=== PATIENT | female | born 2000 | race Caucasian/White ===

== ENCOUNTER 2024-08-18 06:47 | Inpatient (IN) | payer BC ==
[2024-08-18] MEDS: Lactated Ringers 1,000 ML IV SCH (07:30)
[2024-08-18] MEDS ORDERED: Misoprostol 200 MCG Tab PO PRN (07:52)
[2024-08-18] MEDS ORDERED: Sodium Chloride 0.9% 2.5 ML Syringe FLUSH PRN (07:52)
[2024-08-18] MEDS ORDERED: Lidocaine 1% 50 ML MDV INJECT PRN (07:52)
[2024-08-18] MEDS ORDERED: Ondansetron 4 MG/2 ML SDV IVPUSH PRN ×2 (07:52→10:25)
[2024-08-18] MEDS ORDERED: Butorphanol 1 MG/ML SDV IVPUSH PRN (07:52)
[2024-08-18] MEDS ORDERED: Methylergonovine 0.2 MG/1 ML Amp IM PRN (07:52)
[2024-08-18] MEDS ORDERED: Sodium Chloride 0.9% 20 ML SDV IV PRN (07:52)
[2024-08-18] MEDS ORDERED: Sodium Chloride 0.9% 10 ML Syringe FLUSH PRN (07:52)
[2024-08-18] MEDS ORDERED: Water For Irrigation,Sterile 1,000 ML Container IRR PRN (07:52)
[2024-08-18] MEDS ORDERED: Carboprost Tromethamine 250 MCG/1 mL Vial IM PRN (07:52)
[2024-08-18] MEDS ORDERED: Oxytocin/0.9 % Sodium Chloride 30 UNIT/500 ML BAG IV SCH (08:00)
[2024-08-18 08:13] LABS: MEAN CORPUSCULAR HEMOGLOBIN 29.6 pg (28.0-32.0); MEAN CORPUSCULAR HGB CONC 34.3 g/dL (32.0-36.0); MEAN CORPUSCULAR VOLUME 86.4 fL (83.0-99.0); MEAN PLATELET VOLUME 9.1 fL (9.4-12.3); PLATELET COUNT,PLT 313 K/uL (150-400); RED BLOOD CELL COUNT 4.05 M/uL (4.10-5.30); WHITE BLOOD CELL COUNT,WBC 11.48 K/uL (3.9-11.3)
[2024-08-18] MEDS: Oxytocin/0.9 % Sodium Chloride 30 UNIT/500 ML BAG IV SCH (15:41)
[2024-08-18] MEDS ORDERED: Ropivacaine HCl/PF 200 ML ONE (22:17)
[2024-08-18] MEDS ORDERED: Bupivacaine 0.5% 10 ML SDV ONE (22:17)
[2024-08-18] MEDS ORDERED: Phenylephrine HCl In 0.9% NaCl 1 MG/10 ML Syringe ONE (22:17)
[2024-08-18] MEDS: Ropivacaine HCl/PF 400 MG in Premix Bag 1 BAG EPIDUR SCH (22:25)
[2024-08-18] MEDS ORDERED: ePHEDrine 50 MG/ML SDV IVPUSH PRN (22:40)
[2024-08-18] MEDS ORDERED: ePHEDrine 50 MG/ML SDV IM PRN (22:40)
[2024-08-18] MEDS ORDERED: Phenylephrine HCl In 0.9% NaCl 1 MG/10 ML Syringe IVPUSH PRN (22:40)
[2024-08-18] MEDS ORDERED: dexmedeTOMIDine HCl 200 MCG/2 ML SDV EPIDUR SCH (22:45)
[2024-08-18] MEDS: Terbutaline 1 MG/ML SDV SUBCUT PRN (23:46)
[2024-08-19] MEDS ORDERED: Simethicone 80 MG Tab.Chew PO PRN (10:09)
[2024-08-19 10:17] LABS: PH,UMBILICAL ARTERIAL 7.38 (7.18-7.38); PH,UMBILICAL VENOUS 7.39 (7.25-7.45)
[2024-08-19] MEDS: Ibuprofen 800 MG Tab PO PRN (10:39)
[2024-08-19] MEDS: Docusate Sodium 100 MG Cap PO PRN (10:40)
[2024-08-19] MEDS: Benzocaine/Menthol 20%-0.5% Spray 78 GM Cannister TOP PRN (10:40)
[2024-08-19] MEDS: Witch Hazel Medicated Pads 40/Jar TOP PRN (10:41)
[2024-08-19] MEDS: Measles, Mumps & Rubella Vaccine 0.5 ML SDV SUBCUT ONE (17:13)
[2024-08-19] MEDS: Lanolin 100% Cream 7 GM Tube TOP PRN (21:12)
[2024-08-20] MEDS: Acetaminophen 500 MG Tab PO PRN (00:46)
[2024-08-20 06:20] LABS: BASOPHILS ABSOLUTE AUTO 0.06 K/uL (0.00-0.20); BASOPHILS PERCENT AUTO 0.3 % (0.0-1.0); EOSINOPHILS ABSOLUTE AUTO 0.26 K/uL (0.00-0.45); EOSINOPHILS PERCENT AUTO 1.5 % (0.0-6.0); HEMATOCRIT 33.6 % (37.0-47.0); HEMOGLOBIN 11.4 g/dL (12.0-16.0); IMMATURE GRAN ABSOLUTE AUTO 0.11 K/uL (0.00-0.05); IMMATURE GRAN PERCENT AUTO 0.6 % (0.0-0.4); LYMPHOCYTES ABSOLUTE AUTO 3.02 K/uL (1.00-4.80); MEAN CORPUSCULAR HEMOGLOBIN 29.8 pg (28.0-32.0); MEAN CORPUSCULAR HGB CONC 33.9 g/dL (32.0-36.0); MEAN CORPUSCULAR VOLUME 87.7 fL (83.0-99.0); MONOCYTES ABSOLUTE AUTO 1.31 K/uL (0.00-0.80); MONOCYTES PERCENT AUTO 7.4 % (0.0-8.0); NEUTROPHILS ABSOLUTE AUTO 12.98 K/uL (1.80-7.70); NEUTROPHILS PERCENT AUTO 73.2 % (41.0-71.0); PLATELET COUNT,PLT 278 K/uL (150-400); RED BLOOD CELL COUNT 3.83 M/uL (4.10-5.30); WHITE BLOOD CELL COUNT,WBC 17.74 K/uL (3.9-11.3)
[2024-08-20 12:28] LABS: BASOPHILS PERCENT AUTO 0.5 % (0.0-1.0); EOSINOPHILS ABSOLUTE AUTO 0.37 K/uL (0.00-0.45); HEMATOCRIT 34.9 % (37.0-47.0); HEMOGLOBIN 11.8 g/dL (12.0-16.0); IMMATURE GRAN PERCENT AUTO 0.5 % (0.0-0.4); LYMPHOCYTES ABSOLUTE AUTO 2.54 K/uL (1.00-4.80); LYMPHOCYTES PERCENT AUTO 13.5 % (24.0-44.0); MEAN CORPUSCULAR HEMOGLOBIN 29.5 pg (28.0-32.0); MEAN CORPUSCULAR HGB CONC 33.8 g/dL (32.0-36.0); MEAN CORPUSCULAR VOLUME 87.3 fL (83.0-99.0); MEAN PLATELET VOLUME 8.9 fL (9.4-12.3); MONOCYTES ABSOLUTE AUTO 1.21 K/uL (0.00-0.80); MONOCYTES PERCENT AUTO 6.4 % (0.0-8.0); NEUTROPHILS ABSOLUTE AUTO 14.46 K/uL (1.80-7.70); NEUTROPHILS PERCENT AUTO 77.1 % (41.0-71.0); PLATELET COUNT,PLT 320 K/uL (150-400); WHITE BLOOD CELL COUNT,WBC 18.78 K/uL (3.9-11.3)
== END 2024-08-20 18:18 | disposition home or self-care (01) | DRG 560 ==
LOC: MW.OBCHECK 06:47 → MW.OB 06:48 → MW.OBCHECK 08:03 → MW.OB 08:05 → OBSVTOIN 08-19 05:28 → MW.OB 08-19 10:11
PROVIDERS: ADMIT Obstetrics & Gynecology; ATTEND Obstetrics & Gynecology Obstetrics
PROC: 10E0XZZ Delivery of Products of Conception, External Approach (ICD-10-PCS; principal; 2024-08-19)
PROC: 3E0P7VZ Introduction of Hormone into Female Reproductive, Via Natural or Artificial Opening (ICD-10-PCS; 2024-08-19)
PROC: 3E033VJ Introduction of Other Hormone into Peripheral Vein, Percutaneous Approach (ICD-10-PCS; 2024-08-19)
PROC: 0KQM0ZZ Repair Perineum Muscle, Open Approach (ICD-10-PCS; 2024-08-19)
PROC: 3E0R3BZ Introduction of Anesthetic Agent into Spinal Canal, Percutaneous Approach (ICD-10-PCS; 2024-08-19)
PROC: 00HU33Z Insertion of Infusion Device into Spinal Canal, Percutaneous Approach (ICD-10-PCS; 2024-08-19)
PROC: 10H07YZ Insertion of Other Device into Products of Conception, Via Natural or Artificial Opening (ICD-10-PCS; 2024-08-19)
DX: O42.02 Full-term premature rupture of membranes, onset of labor within 24 hours of rupture (principal); Z37.0 Single live birth; E66.812 Obesity, class 2; Z3A.39 39 weeks gestation of pregnancy; O70.1 Second degree perineal laceration during delivery; O99.892 Other specified diseases and conditions complicating childbirth; R73.03 Prediabetes; O76 Abnormality in fetal heart rate and rhythm complicating labor and delivery; O69.2XX0 Labor and delivery complicated by other cord entanglement, with compression, not applicable or unspecified; O99.214 Obesity complicating childbirth
CPT/HCPCS: 36415; 51702; 59025; 59409; 76815; 76815-26; 82803; 85025; 85027; 86592; 86850; 86900; 86901; A9270-GY; J0665; J2371; J2590; J2795; J7120